=== PATIENT | male | born 1990 | race Caucasian/White ===

== ENCOUNTER 2017-06-13 21:07 | Emergency (ER) | payer OTHER ==
[2017-06-13] MEDS ORDERED: ABIL20TA5 PO (22:04)
[2017-06-13] MEDS ORDERED: GABA400C5 PO (22:04)
[2017-06-13] MEDS ORDERED: OXCA300T PO ×2 (22:05→22:35)
[2017-06-13] MEDS ORDERED: REME15TA PO (22:35)
--- NOTE | 2017-06-13 22:37 | PD ---
HPI Chief Complaint: Psychiatric Symptoms Time Seen by Provider: 21:37 Travel History International Travel<30 days: No Contact w/Intl Traveler<30days: No History of Present Illness HPI 27 YO M presents to the ED as a transfer from [facility]. The patient has a history of depression, polysubstance abuse and recently underwent 1 week inpatient treatment. Immediately after release he used "fake Karyn" and made a suicidal gesture of cutting his wrist. His tetanus is UTD. He was evaluated at [facility], medically cleared and transferred here. He takes Trileptal ,gabapentin and Remeron. On presentation he denies suicidal or homicidal ideation. He endorses psychiatric history of depression, endorses compliance with his daily medications. He endorses anxiety, insomnia which he thinks is secondary to Karyn use. No other somatic complaints. He is demanding benzodiazepines. PFSH Past Medical History ADHD: Yes ( A CHILD) Bipolar Disorder: Yes Anxiety: Yes Psychiatric: Yes (PTSD) Past Surgical History Genitourinary Surgery: Yes ([employer]) Social History Alcohol Use: Yes Tobacco Use: No Substance Use: Yes (POLYSUBSTANCE) Allergies-Medications (Allergen,Severity, Reaction): Coded Allergies: No Known Allergies (Unverified , 06/13/17) Reported Meds & Prescriptions Reported Meds & Active Scripts Active Reported Remeron (Mirtazapine) 15 Mg Tab 15 Mg PO HS Oxcarbazepine 300 Mg Tab 300 Mg PO BID Gabapentin 400 Mg Cap 300 Cap PO TID Review of Systems Except as stated in HPI: all other systems reviewed are Neg Physical Exam Narrative GENERAL: Thin, well-developed white male no acute distress. PSYCH: Anxious, somewhat pressured speech. SKIN: Focused skin assessment warm/dry. HEAD: Normocephalic. EYES: No scleral icterus. No injection or drainage. NECK: Supple, trachea midline. No JVD or lymphadenopathy. CARDIOVASCULAR: Regular rate and rhythm without murmurs, gallops, or rubs. RESPIRATORY: Breath sounds clear and equal bilaterally. No accessory muscle use. GASTROINTESTINAL: Abdomen soft, non-tender, nondistended. Active bowel sounds. MUSCULOSKELETAL: No cyanosis, or edema. Walks with a normal gait. BACK: Nontender without obvious deformity. No CVA tenderness. Data Data Last Documented VS Vital Signs Date Time Temp Pulse Resp B/P (MAP) Pulse Ox O2 Delivery O2 Flow Rate FiO2 06/14/17 10:00 97.8 98 18 139/82 (101) 100 Room Air Orders Orders Psych Screen (06/13/17 21:37) Hydroxyzine Pamoate (Vistaril) (06/13/17 22:30) Acetaminophen (Tylenol) (06/13/17 23:00) Diphenhydramine (Benadryl) (06/14/17 00:30) Haloperidol Inj (Haldol Inj) (06/14/17 02:30) Diphenhydramine Inj (Benadryl Inj) (06/14/17 02:30) Restraints Non-Violent ZITA.Q3H (06/14/17 02:47) Diet Regular Basic (06/14/17 Breakfast) Diet Regular Basic (06/14/17 Lunch) MDM Medical Decision Making Medical Screen Exam Complete: Yes Emergency Medical Condition: Yes Differential Diagnosis polysubstance abuse versus depression versus Narrative Course 27 YO M presents to the ED as a transfer from [facility]. The patient has a history of depression, polysubstance abuse and recently underwent 1 week inpatient treatment. Immediately after release he used "fake Karyn" and made a suicidal gesture of cutting his wrist. He was evaluated at [facility], medically cleared and transferred here. He takes Trileptal ,gabapentin and Remeron. On presentation he denies suicidal or homicidal ideation. He endorses anxiety, insomnia which he thinks is secondary to Karyn use. No other somatic complaints. He is demanding benzodiazepines. Vitals reviewed. Patient 's tachycardic on arrival but this resolves during the course of evaluation. Physical exam is reassuring. I reviewed the medical record from the transferring hospital. No concerning abnormalities of CBC, CMP. Tetanus up-to- date. Tox screen positive for amphetamine and THC. Patient was offered Vistaril but refused. He is medically cleared for psychiatric evaluation. Loretta Muniz June 13, 2017 22:37
[2017-06-13 22:56] VITALS: BP 129/85; PULSE 109; RESP 18; O2SAT 100
[2017-06-13] MEDS ORDERED: ACETAMINOPHEN 325 MG TAB PO ONE (23:00)
[2017-06-14] MEDS ORDERED: diphenhydrAMINE HCL 50 MG CAP PO ONE (00:30)
[2017-06-14 00:50] VITALS: TEMP 97.3
[2017-06-14] MEDS ORDERED: HALOPERIDOL LACTATE 5 MG/ML AMP IM ONE (02:30)
[2017-06-14] MEDS ORDERED: diphenhydrAMINE HCL 50 MG/ML VIAL IM ONE (02:30)
--- NOTE | 2017-06-14 02:51 | PD ---
Physical Exam Date Seen by Provider: June 14, 2017 Time Seen by Provider: 02:48 Narrative GENERAL: This is a well-nourished, well-developed patient, in no apparent distress. SKIN: No rashes, ecchymoses or lesions. Warm and dry. HEAD: Atraumatic. Normocephalic. EYES: PERRL, EOMI, no discharge or injection. No scleral icterus. EARS: Clear NOSE: Nasal turbinates appear normal. THROAT: Mucosa pink and moist. Airway patent. NECK: Trachea midline. supple, moves head freely. LUNGS: Clear to auscultation. CV: Regular in rhythm. ABDOMEN: Soft nontender. EXT: No clubbing cyanosis or edema. Data Data Last Documented VS Vital Signs Date Time Temp Pulse Resp B/P (MAP) Pulse Ox O2 Delivery O2 Flow Rate FiO2 06/14/17 00:50 97.3 06/13/17 22:56 109 18 100 Room Air Orders Orders Psych Screen (06/13/17 21:37) Hydroxyzine Pamoate (Vistaril) (06/13/17 22:30) Acetaminophen (Tylenol) (06/13/17 23:00) Diphenhydramine (Benadryl) (06/14/17 00:30) Haloperidol Inj (Haldol Inj) (06/14/17 02:30) Diphenhydramine Inj (Benadryl Inj) (06/14/17 02:30) Restraints Non-Violent ZITA.Q3H (06/14/17 02:47) [facility] Medical Record Reviewed: Yes Supervised Visit with CARMELA: No Differential Diagnosis . Narrative Course I was notified by the nursing staff that the patient was complaining of insomnia. He had been given Vistaril earlier. He was given additional 50 mg of Benadryl p.o. The patient had continued to escalate and was demanding medication to sleep such as benzos. He was notified that the accepting psychiatrist did not want to continue benzos on this patient. The patient was placed in locked seclusion. He became increasingly combative screaming, yelling , banging and kicking the door. Concern for risk of injury to the patient was determined and he was placed in nonviolent restraints. I have evaluated the patient. He has been given Haldol 5 mg IM and 50 mg of Benadryl IM. The patient has been informed that he will be de-escalated and taken out of restraints as soon as possible. Condition: Stable Corbin Olea June 14, 2017 02:50
[2017-06-14 05:59] VITALS: BP 110/68; O2SAT 100
[2017-06-14 10:00] VITALS: BP 139/82; PULSE 98; RESP 18; TEMP 97.8; O2SAT 100
[2017-06-14 14:00] VITALS: BP 127/85; PULSE 84; RESP 16; TEMP 98.7; O2SAT 97
[2017-06-14 18:00] VITALS: BP 128/86; PULSE 90; RESP 18; TEMP 98.1; O2SAT 99
[2017-06-14] MEDS ORDERED: GABAPENTIN 300 MG CAP PO SCH (18:00)
--- NOTE | 2017-06-14 20:03 | PD ---
Physical Exam Date Seen by Provider: June 14, 2017 Time Seen by Provider: 20:00 Narrative For full history and physical examination please see previous notes. Data Data Last Documented VS Vital Signs Date Time Temp Pulse Resp B/P (MAP) Pulse Ox O2 Delivery O2 Flow Rate FiO2 06/14/17 18:00 98.1 90 18 128/86 (100) 99 Room Air Orders Orders Psych Screen (06/13/17 21:37) Hydroxyzine Pamoate (Vistaril) (06/13/17 22:30) Acetaminophen (Tylenol) (06/13/17 23:00) Diphenhydramine (Benadryl) (06/14/17 00:30) Haloperidol Inj (Haldol Inj) (06/14/17 02:30) Diphenhydramine Inj (Benadryl Inj) (06/14/17 02:30) Restraints Non-Violent ZITA.Q3H (06/14/17 02:47) Diet Regular Basic (06/14/17 Breakfast) Diet Regular Basic (06/14/17 Lunch) ^ Other Nursing Orders (06/14/17 11:37) Mirtazapine (Remeron) (06/14/17 21:00) Oxcarbazepine (Trileptal) (06/14/17 21:00) Gabapentin (Neurontin) (06/14/17 18:00) Diet Regular Basic (06/14/17 Dinner) Ed Discharge Order (06/14/17 20:00) MDM Medical Record Reviewed: Yes Supervised Visit with CARMELA: No Interpretation(s) Vital Signs Date Time Temp Pulse Resp B/P (MAP) Pulse Ox O2 Delivery O2 Flow Rate FiO2 06/14/17 18:00 98.1 90 18 128/86 (100) 99 Room Air 06/14/17 14:00 98.7 84 16 127/85 (99) 97 Room Air 06/14/17 10:00 97.8 98 18 139/82 (101) 100 Room Air 06/14/17 05:59 76 16 110/68 (82) 100 Room Air 06/14/17 00:50 97.3 06/13/17 22:56 109 18 129/85 (100) 100 Room Air Narrative Course Patient is a 19-year-old male was seen and evaluated emergency department, medically cleared. He was then seen and evaluated by psychiatric nurse practitioner. Patient will be discharged to [facility] for rehabilitation. Diagnosis Primary Impression: Polysubstance abuse Referrals: [facility] Instructions: General Instructions Med/Other Pt SpecificInfo: No Change to Meds Disposition: 64 DISC TO [facility] Condition: Stable Erica Jurado June 14, 2017 20:03
[2017-06-14] MEDS ORDERED: MIRTAZAPINE 15 MG TAB PO SCH (21:00)
[2017-06-14] MEDS ORDERED: OXcarbazepine 300 MG TAB PO SCH (21:00)
== END 2017-06-14 21:47 ==
LOC: NEPJ 21:07
DX: F19.10 Other psychoactive substance abuse, uncomplicated (principal); G47.00 Insomnia, unspecified
CPT/HCPCS: 96372; 99285; J1200; J1630; Q0163